=== PATIENT | male | born 1995 | race Caucasian/White ===

== ENCOUNTER 2023-03-07 10:29 | Emergency (ER) | payer OTHER ==
[~2023-03-07] VITALS: Ht 184.2 cm; Wt 171.8 kg
[2023-03-07 10:34] VITALS: BP 149/100; PULSE 74; RESP 16; TEMP 97.6
[2023-03-07] MEDS ORDERED: UNKNOWN ANTIBIOTIC PO (10:35)
[2023-03-07] MEDS ORDERED: AMOX1TAB16 PO (10:38)
[2023-03-07] MEDS ORDERED: CHLO3800 TP (10:38)
[2023-03-07] MEDS ORDERED: HYDR-4723 PO (10:50)
[2023-03-08] MEDS ORDERED: PENI500T2 PO (10:20)
[2023-03-08] MEDS ORDERED: PRED-554 PO (10:55)
== END 2023-03-07 11:18 | disposition home or self-care (01) ==
LOC: EMS 10:29
DX: K02.9 Dental caries, unspecified (principal); R03.0 Elevated blood-pressure reading, without diagnosis of hypertension; Z87.891 Personal history of nicotine dependence
CPT/HCPCS: 99283; Z7502

== ENCOUNTER 2023-03-08 06:08 | Emergency (ER) | payer MEDICAID, OTHER ==
[~2023-03-08] VITALS: Ht 182.9 cm; Wt 171.8 kg
[~2023-03-08 06:08] MED LIST: AMOX1TAB16 PO; CHLO3800 TP; HYDR-4723 PO
[2023-03-08 07:36] VITALS: TEMP 99.6
[2023-03-08] MEDS ORDERED: CefTRIAXone 1 GM/DEXTROSE 50 ML IV ONE (07:45)
[2023-03-08] MEDS ORDERED: DEXAMETHASONE SOD PHOS 4 MG/ML 5 ML VIAL IVP ONE (07:45)
[2023-03-08] MEDS ORDERED: KETOROLAC TROMETHAMINE 30 MG/ML VIAL IVP ONE (07:45)
[2023-03-08] MEDS ORDERED: SODIUM CHLORIDE 0.9% 1,000 ML IV ONE (07:45)
[2023-03-08 07:58] LABS: BASOPHILS % (AUTO) 0.5 % (0.0-2.0); EOSINOPHILS % (AUTO) 1.4 % (1.0-6.0); HEMATOCRIT 43.7 % (41-53); HEMOGLOBIN 15.1 g/dL (13.5-17.5); LYMPHOCYTES # (AUTO) 0.8 K/uL (1.0-4.8); LYMPHOCYTES % (AUTO) 8.9 % (22.0-44.0); MEAN CORPUSCULAR HEMOGLOBIN 28.5 pg (26.0-34.0); MEAN CORPUSCULAR HGB CONC 34.5 G/dL (31.0-37.0); MEAN CORPUSCULAR VOLUME 83 fL (80-100); MONOCYTES # (AUTO) 0.6 K/uL (0.1-1.0); MONOCYTES % (AUTO) 6.9 % (2.0-9.0); NEUTROPHILS # (AUTO) 7.6 K/uL (1.8-7.7); NEUTROPHILS % (AUTO) 82.3 % (40.0-70.0); PLATELET COUNT (AUTO) 205 K/uL (150-450); RED BLOOD CELL COUNT(AUTO) 5.29 MIL/uL (4.50-5.90); RED CELL DISTRIBUTION WIDTH 14.1 % (11.5-14.5); WHITE BLOOD COUNT (AUTO) 9.2 K/uL (4.5-11.0)
[2023-03-08 08:08] LABS: ANION GAP 9 mmol/L (8-16); CALCIUM, TOTAL 8.8 mg/dL (8.8-10.5); CARBON DIOXIDE 28 mmol/L (22-29); CHLORIDE 104 mmol/L (98-107); CREATININE 0.73 mg/dL (0.60-1.30); GLOMERULAR FILTR. RATE CALC > 60 mL/min (>60); GLUCOSE,RANDOM 122 mg/dL (70-110); POTASSIUM 3.9 mmol/L (3.5-5.1); SODIUM SERUM 141 mmol/L (136-145); UREA NITROGEN, BLOOD 10 mg/dL (7-18)
[2023-03-08] MEDS ORDERED: PENI500T2 PO (10:20)
[2023-03-08 10:26] VITALS: BP 140/84; PULSE 90; RESP 16
[2023-03-08] MEDS ORDERED: PRED-554 PO (10:55)
== END 2023-03-08 11:30 | disposition home or self-care (01) ==
LOC: EMS 06:09
DX: I88.9 Nonspecific lymphadenitis, unspecified (principal); K08.89 Other specified disorders of teeth and supporting structures; Z87.891 Personal history of nicotine dependence
CPT/HCPCS: 99285; 96365; 70490; 96375; 80048; 85025; 87430; 36415; J0696; J1100; J1885